=== PATIENT | female | born 1950 | race Caucasian/White ===

== ENCOUNTER 2016-09-21 11:41 | Emergency (ER) | payer BC, MEDICARE ==
[~2016-09-21] VITALS: Ht 157.5 cm; Wt 68.0 kg
--- NOTE | 2016-09-21 11:50 | NUR ---
Dr. Sosa at bedside for eval.
[2016-09-21] MEDS: IPRATROPIUM BROMIDE 0.5 MG/2.5 ML NEBU NEB ONE (12:01)
[2016-09-21] MEDS: ALBUTEROL SULFATE 2.5 MG/3 ML NEBU NEB ONE (12:01)
[2016-09-21] MEDS: predniSONE 10 MG TABLET PO ONE (12:03)
[2016-09-21] MEDS ORDERED: predniSONE 50 MG TABLET ONE (12:12)
[2016-09-21] MEDS ORDERED: predniSONE 10 MG TABLET ONE (12:12)
[2016-09-21] MEDS ORDERED: IPRATROPIUM BROMIDE 0.5 MG/2.5 ML NEBU ONE (12:15)
[2016-09-21] MEDS ORDERED: ALBUTEROL SULFATE 2.5 MG/3 ML NEBU ONE (12:15)
--- NOTE | 2016-09-21 12:45 | NUR ---
Patient discharged to home in stable conditon. Written and verbal after care instructions given. Patient verbalizes understanding of instructions. Patient left with stable gait.
[2016-09-21 12:46] VITALS: BP 147/82
== END 2016-09-21 12:48 | disposition home or self-care (01) ==
LOC: ER 11:47
DX: J45.909 Unspecified asthma, uncomplicated (principal); I10 Essential (primary) hypertension
CPT/HCPCS: 71010; A4663; J3590; J7512